=== PATIENT | male | born 1930 | race Caucasian/White ===

== ENCOUNTER 2016-12-04 04:20 | Inpatient (IN) | payer MEDICARE ==
[~2016-12-04] VITALS: Ht 182.9 cm; Wt 93.0 kg
[2016-12-04] MEDS ORDERED: TELM40TA PO (04:36)
[2016-12-04] MEDS ORDERED: METH500T7 PO (04:36)
[2016-12-04] MEDS ORDERED: GABA-827 PO (04:36)
[2016-12-04] MEDS ORDERED: DIAZ2TAB3 PO (04:36)
[2016-12-04] MEDS ORDERED: DOXY100C2 PO (04:36)
[2016-12-04] MEDS ORDERED: FINA5TAB4 PO (04:36)
[2016-12-04] MEDS ORDERED: OXYC-302 PO (04:36)
[2016-12-04] MEDS ORDERED: TAMS0.4C2 PO (04:36)
[2016-12-04] MEDS ORDERED: SODIUM CHLORIDE 0.9% 1,000 ML IV ONE (05:16)
[2016-12-04] MEDS ORDERED: SODIUM CHLORIDE FLUSH 10ML SYR IVF ONE (05:30)
[2016-12-04 06:13] LABS: ASPARTATE AMINO TRANSFERASE 9 U/L (15-37); BLOOD UREA NITROGEN 25 mg/dL (7-18); C-REACTIVE PROTEIN, QUANT 0.13 mg/dL (0.02-0.49)
[2016-12-04] MEDS ORDERED: GADOBUTROL 10 MMOL/10 ML PFS ONE (07:37)
[2016-12-04] MEDS ORDERED: ACYCLOVIR IV ONE (10:00)
[2016-12-04] MEDS ORDERED: SODIUM CHLORIDE 0.9% IV ONE (10:00)
[2016-12-04 10:21] LABS: RAPID INFLUENZA A Negative (Negative); RAPID INFLUENZA B Negative (Negative)
[2016-12-04 11:21] VITALS: BP 159/89
[2016-12-04] MEDS ORDERED: BISACODYL 10 MG SUPP PR PRN (11:30)
[2016-12-04] MEDS ORDERED: ONDANSETRON 2MG/ML, 2ML IVP PRN (11:30)
[2016-12-04] MEDS ORDERED: ENALAPRILAT 1.25 MG/ML, 2ML IVPush PRN (11:30)
[2016-12-04 14:09] LABS: GLUCOSE, CSF 82 mg/dL (40-80)
[2016-12-04 14:17] VITALS: BP 153/88
[2016-12-04] MEDS ORDERED: MEROPENEM 1 GM in SODIUM CHLORIDE 0.9% 100 ML IV SCH (14:30)
[2016-12-04] MEDS: NS + 20MEQ KCL 1,000 ML IV SCH (14:32)
[2016-12-04] MEDS: INSULIN REGULAR 100 UNITS/ML, 3ML VIAL SQ-INSULIN SCH ×2 (16:00→21:00)
[2016-12-04] MEDS: GABAPENTIN 400 MG CAPSULE PO SCH ×2 (17:44→21:58)
[2016-12-04] MEDS: MORPHINE SULFATE 4 MG/ML, 1ML IVPush PRN ×2 (18:00→22:58)
[2016-12-04] MEDS: SODIUM CHLORIDE 0.9% IV SCH (19:06)
[2016-12-04] MEDS: ACYCLOVIR IV SCH (19:06)
[2016-12-04 20:24] VITALS: BP 147/82
[2016-12-05 00:26] VITALS: BP 139/80
[2016-12-05] MEDS: SODIUM CHLORIDE 0.9% IV SCH ×3 (03:57→20:30)
[2016-12-05] MEDS: ACYCLOVIR IV SCH ×3 (03:57→20:30)
[2016-12-05] MEDS: NS + 20MEQ KCL 1,000 ML IV SCH ×2 (03:57→16:00)
[2016-12-05] MEDS: MORPHINE SULFATE 4 MG/ML, 1ML IVPush PRN ×2 (05:35→15:11)
[2016-12-05 06:17] LABS: BLOOD UREA NITROGEN 22 mg/dL (7-18)
[2016-12-05 06:33] VITALS: BP 136/72
[2016-12-05] MEDS: INSULIN REGULAR 100 UNITS/ML, 3ML VIAL SQ-INSULIN SCH ×4 (07:00→20:35)
[2016-12-05] MEDS: VALSARTAN 160 MG TABLET PO SCH (08:44)
[2016-12-05] MEDS: TAMSULOSIN 0.4 MG CAP.ER.24H PO SCH (08:44)
[2016-12-05] MEDS: FINASTERIDE 5 MG TABLET PO SCH (08:44)
[2016-12-05] MEDS: GABAPENTIN 400 MG CAPSULE PO SCH ×3 (08:44→20:34)
[2016-12-05 12:40] VITALS: BP 145/77
[2016-12-05] MEDS: ACETAMINOPHEN 325 MG TABLET PO PRN (15:11)
[2016-12-05 19:50] VITALS: BP 157/85
[2016-12-06] VITALS (7 sets, daily range): BP systolic 126–181; BP diastolic 74–97
[2016-12-06] MEDS: NS + 20MEQ KCL 1,000 ML IV SCH ×2 (02:16→13:43)
[2016-12-06] MEDS: ACYCLOVIR IV SCH ×3 (04:19→21:25)
[2016-12-06] MEDS: SODIUM CHLORIDE 0.9% IV SCH ×3 (04:19→21:25)
[2016-12-06 05:26] LABS: BLOOD UREA NITROGEN 20 mg/dL (7-18)
[2016-12-06] MEDS: ACETAMINOPHEN 325 MG TABLET PO PRN ×2 (05:42→13:44)
[2016-12-06] MEDS: INSULIN REGULAR 100 UNITS/ML, 3ML VIAL SQ-INSULIN SCH (07:00)
[2016-12-06] MEDS: TAMSULOSIN 0.4 MG CAP.ER.24H PO SCH (08:34)
[2016-12-06] MEDS: MORPHINE SULFATE 4 MG/ML, 1ML IVPush PRN (08:34)
[2016-12-06] MEDS: FINASTERIDE 5 MG TABLET PO SCH (08:34)
[2016-12-06] MEDS: VALSARTAN 160 MG TABLET PO SCH (08:34)
[2016-12-06] MEDS: GABAPENTIN 400 MG CAPSULE PO SCH ×3 (08:34→21:25)
[2016-12-06] MEDS: OXYcodone/APAP 5/325MG TABLET PO PRN ×2 (13:44→21:52)
[2016-12-06 22:06] LABS: ABSOLUTE CD 4 HELPER 365 /uL (359-1519); HEMATOCRIT 44.3 % (37.5-51.0); HEMOGLOBIN 15.1 g/dL (12.6-17.7); IMMATURE GRANULOCYTES 0 % (.); MCH 32.3 pg (26.6-33.0); MCHC 34.1 g/dL (31.5-35.7); MCV 95 fL (79-97); MONOCYTES 11 % (.); NEUTROPHILS 80 % (.); PLATELETS 175 x10E3/uL (150-379); RBC 4.68 x10E6/uL (4.14-5.80); RDW 13.8 % (12.3-15.4); WBC 10.8 x10E3/uL (3.4-10.8)
[2016-12-07] MEDS: NS + 20MEQ KCL 1,000 ML IV SCH ×2 (02:07→13:12)
[2016-12-07 02:12] VITALS: BP 137/74
[2016-12-07] MEDS: OXYcodone/APAP 5/325MG TABLET PO PRN ×4 (02:29→20:35)
[2016-12-07] MEDS: ACYCLOVIR IV SCH ×3 (05:04→21:11)
[2016-12-07] MEDS: SODIUM CHLORIDE 0.9% IV SCH ×3 (05:04→21:11)
[2016-12-07 08:53] VITALS: BP 145/81
[2016-12-07] MEDS: FINASTERIDE 5 MG TABLET PO SCH (09:41)
[2016-12-07] MEDS: VALSARTAN 160 MG TABLET PO SCH (09:41)
[2016-12-07] MEDS: TAMSULOSIN 0.4 MG CAP.ER.24H PO SCH (09:41)
[2016-12-07] MEDS: GABAPENTIN 400 MG CAPSULE PO SCH ×3 (09:41→21:11)
[2016-12-07 14:41] VITALS: BP 138/74
[2016-12-07 20:17] VITALS: BP 170/83
[2016-12-07 21:10] VITALS: BP 173/92
[2016-12-07] MEDS ORDERED: ENALAPRILAT 1.25 MG/ML, 2ML IV ONE (21:30)
[2016-12-08] MEDS: NS + 20MEQ KCL 1,000 ML IV SCH ×2 (01:23→16:51)
[2016-12-08 01:25] VITALS: BP 160/90
[2016-12-08] MEDS: OXYcodone/APAP 5/325MG TABLET PO PRN ×4 (01:37→18:32)
[2016-12-08] MEDS: ACYCLOVIR IV SCH ×3 (04:44→21:48)
[2016-12-08] MEDS: SODIUM CHLORIDE 0.9% IV SCH ×3 (04:44→21:48)
[2016-12-08 04:49] VITALS: BP 162/87
[2016-12-08 08:24] VITALS: BP 161/90
[2016-12-08] MEDS: VALSARTAN 160 MG TABLET PO SCH (08:29)
[2016-12-08] MEDS: TAMSULOSIN 0.4 MG CAP.ER.24H PO SCH (08:30)
[2016-12-08] MEDS: FINASTERIDE 5 MG TABLET PO SCH (08:30)
[2016-12-08] MEDS: GABAPENTIN 400 MG CAPSULE PO SCH ×3 (08:30→21:00)
[2016-12-08 11:36] LABS: ASPARTATE AMINO TRANSFERASE 7 U/L (15-37); BLOOD UREA NITROGEN 11 mg/dL (7-18)
[2016-12-08 14:58] VITALS: BP 110/70
[2016-12-08 19:21] VITALS: BP 150/74
[2016-12-08] MEDS: LISINOPRIL 5 MG TABLET PO SCH (21:00)
[2016-12-09] MEDS: OXYcodone/APAP 5/325MG TABLET PO PRN ×2 (00:34→09:12)
[2016-12-09 01:45] VITALS: BP 151/77
[2016-12-09] MEDS: ACYCLOVIR IV SCH ×3 (04:49→20:16)
[2016-12-09] MEDS: SODIUM CHLORIDE 0.9% IV SCH ×3 (04:49→20:16)
[2016-12-09 05:42] LABS: HIV 1&2 ANTIBODY SCREEN Nonreactive (Nonreactive); HIV-1 p24 ANTIGEN Nonreactive (Nonreactive)
[2016-12-09] MEDS: LISINOPRIL 5 MG TABLET PO SCH ×2 (09:00→22:14)
[2016-12-09] MEDS ORDERED: LIDOCAINE 1%, 20ML ONE (09:08)
[2016-12-09] MEDS ORDERED: LIDOCAINE 2%, 20ML ONE ×2 (09:09→14:25)
[2016-12-09 09:10] VITALS: BP 137/82
[2016-12-09] MEDS: GABAPENTIN 400 MG CAPSULE PO SCH ×3 (09:12→22:14)
[2016-12-09] MEDS: TAMSULOSIN 0.4 MG CAP.ER.24H PO SCH (09:12)
[2016-12-09] MEDS: VALSARTAN 160 MG TABLET PO SCH (09:12)
[2016-12-09] MEDS: FINASTERIDE 5 MG TABLET PO SCH (09:12)
[2016-12-09] MEDS ORDERED: FENTANYL PF 100 MCG/2ML ONE ×2 (09:13→14:15)
[2016-12-09] MEDS ORDERED: NALOXONE 1 MG/ML, 2ML ONE ×2 (09:13→14:15)
[2016-12-09 10:54] LABS: ASPARTATE AMINO TRANSFERASE 9 U/L (15-37); BLOOD UREA NITROGEN 11 mg/dL (7-18)
[2016-12-09] MEDS: NS + 20MEQ KCL 1,000 ML IV SCH (12:19)
[2016-12-09] MEDS: MORPHINE SULFATE 4 MG/ML, 1ML IVPush PRN (12:32)
[2016-12-09 12:55] VITALS: BP 138/82
[2016-12-09] MEDS ORDERED: MIDAZOLAM 1 MG/ML, 5ML ONE (14:15)
[2016-12-09] MEDS ORDERED: FLUMAZENIL 0.1 MG/1 ML, 5ML ONE (14:15)
[2016-12-09] MEDS ORDERED: OMNIPAQUE 350 MG/ML, 75ML BOTTLE ONE (14:51)
[2016-12-09 16:02] VITALS: BP 174/91
[2016-12-09 19:30] VITALS: BP 163/79
[2016-12-10 03:30] VITALS: BP 155/99
[2016-12-10] MEDS: NS + 20MEQ KCL 1,000 ML IV SCH (04:28)
[2016-12-10] MEDS: ACYCLOVIR IV SCH ×3 (04:30→21:18)
[2016-12-10] MEDS: SODIUM CHLORIDE 0.9% IV SCH ×3 (04:30→21:18)
[2016-12-10 05:44] LABS: BLOOD UREA NITROGEN 9 mg/dL (7-18)
[2016-12-10 07:35] VITALS: BP 158/88
[2016-12-10] MEDS: MORPHINE SULFATE 4 MG/ML, 1ML IVPush PRN ×2 (08:14→09:45)
[2016-12-10] MEDS: TAMSULOSIN 0.4 MG CAP.ER.24H PO SCH (08:15)
[2016-12-10] MEDS: FINASTERIDE 5 MG TABLET PO SCH (08:15)
[2016-12-10] MEDS: GABAPENTIN 400 MG CAPSULE PO SCH ×3 (08:15→21:04)
[2016-12-10] MEDS: VALSARTAN 160 MG TABLET PO SCH (08:16)
[2016-12-10] MEDS: LISINOPRIL 5 MG TABLET PO SCH ×2 (08:17→21:00)
[2016-12-10] MEDS: ACETAMINOPHEN 325 MG TABLET PO PRN (10:43)
[2016-12-10 15:33] VITALS: BP 136/83
[2016-12-10] MEDS: OXYcodone/APAP 5/325MG TABLET PO PRN ×2 (15:43→21:04)
[2016-12-10 18:59] VITALS: BP 147/83
[2016-12-11 00:52] VITALS: BP 157/85
[2016-12-11] MEDS: OXYcodone/APAP 5/325MG TABLET PO PRN ×4 (01:35→18:19)
[2016-12-11] MEDS: SODIUM CHLORIDE 0.9% IV SCH ×3 (04:42→20:52)
[2016-12-11] MEDS: ACYCLOVIR IV SCH ×3 (04:42→20:52)
[2016-12-11 06:09] LABS: ASPARTATE AMINO TRANSFERASE 16 U/L (15-37); BLOOD UREA NITROGEN 13 mg/dL (7-18)
[2016-12-11] MEDS: NS + 20MEQ KCL 1,000 ML IV SCH (06:34)
[2016-12-11 08:14] VITALS: BP 173/89
[2016-12-11] MEDS: GABAPENTIN 400 MG CAPSULE PO SCH ×3 (09:00→18:19)
[2016-12-11] MEDS: FINASTERIDE 5 MG TABLET PO SCH (09:00)
[2016-12-11] MEDS: LISINOPRIL 5 MG TABLET PO SCH (09:00)
[2016-12-11] MEDS: TAMSULOSIN 0.4 MG CAP.ER.24H PO SCH (09:00)
[2016-12-11] MEDS: VALSARTAN 160 MG TABLET PO SCH (09:00)
[2016-12-11] MEDS: MORPHINE SULFATE 4 MG/ML, 1ML IVPush PRN (09:00)
[2016-12-11 12:54] VITALS: BP 158/89
[2016-12-11 19:27] VITALS: BP 102/66
[2016-12-11] MEDS: LISINOPRIL 10 MG TABLET PO SCH (20:46)
[2016-12-12] MEDS: OXYcodone/APAP 5/325MG TABLET PO PRN ×4 (00:38→16:23)
[2016-12-12 02:34] VITALS: BP 157/82
[2016-12-12] MEDS: ACYCLOVIR IV SCH ×3 (04:44→20:50)
[2016-12-12] MEDS: SODIUM CHLORIDE 0.9% IV SCH ×3 (04:44→20:50)
[2016-12-12 06:15] LABS: BLOOD UREA NITROGEN 13 mg/dL (7-18)
[2016-12-12 06:44] VITALS: BP 155/87
[2016-12-12] MEDS: VALSARTAN 160 MG TABLET PO SCH (09:07)
[2016-12-12] MEDS: TAMSULOSIN 0.4 MG CAP.ER.24H PO SCH (09:08)
[2016-12-12] MEDS: GABAPENTIN 400 MG CAPSULE PO SCH ×3 (09:09→20:51)
[2016-12-12] MEDS: LISINOPRIL 10 MG TABLET PO SCH ×2 (09:10→20:51)
[2016-12-12] MEDS: FINASTERIDE 5 MG TABLET PO SCH (09:10)
[2016-12-12] MEDS: SODIUM CHLORIDE 0.9% 1,000 ML IV SCH (11:38)
[2016-12-12 12:03] VITALS: BP 138/80
[2016-12-12 19:59] VITALS: BP 166/89
[2016-12-13 01:41] VITALS: BP 148/91
[2016-12-13] MEDS: SODIUM CHLORIDE 0.9% IV SCH ×3 (04:39→20:03)
[2016-12-13] MEDS: ACYCLOVIR IV SCH ×3 (04:39→20:03)
[2016-12-13 07:58] VITALS: BP 139/92
[2016-12-13] MEDS: SODIUM CHLORIDE 0.9% 1,000 ML IV SCH ×2 (08:56→20:04)
[2016-12-13] MEDS: TAMSULOSIN 0.4 MG CAP.ER.24H PO SCH (08:58)
[2016-12-13] MEDS: OXYcodone/APAP 5/325MG TABLET PO PRN ×2 (08:58→14:47)
[2016-12-13] MEDS: VALSARTAN 160 MG TABLET PO SCH (08:58)
[2016-12-13] MEDS: FINASTERIDE 5 MG TABLET PO SCH (08:58)
[2016-12-13] MEDS: LISINOPRIL 10 MG TABLET PO SCH (08:58)
[2016-12-13] MEDS: GABAPENTIN 400 MG CAPSULE PO SCH ×3 (08:58→20:03)
[2016-12-13 09:15] VITALS: BP 162/101
[2016-12-13 10:46] LABS: IS PT STATUS REG ER OR PRE ER? NO
[2016-12-13 13:00] VITALS: BP 114/77
[2016-12-13] MEDS: LISINOPRIL 20 MG TABLET PO SCH (20:04)
[2016-12-13 20:18] VITALS: BP_SYST 186; BP_SYST 189; BP_DIAS 102; BP_DIAS 89
[2016-12-14 02:49] VITALS: BP 157/93
[2016-12-14] MEDS: ACYCLOVIR IV SCH ×2 (04:13→12:36)
[2016-12-14] MEDS: SODIUM CHLORIDE 0.9% IV SCH ×2 (04:13→12:36)
[2016-12-14 05:15] LABS: BLOOD UREA NITROGEN 13 mg/dL (7-18)
[2016-12-14 07:51] VITALS: BP 167/87
[2016-12-14] MEDS: OXYcodone/APAP 5/325MG TABLET PO PRN ×3 (08:28→15:11)
[2016-12-14] MEDS: GABAPENTIN 400 MG CAPSULE PO SCH (08:29)
[2016-12-14] MEDS: FINASTERIDE 5 MG TABLET PO SCH (08:29)
[2016-12-14] MEDS: LISINOPRIL 20 MG TABLET PO SCH (08:29)
[2016-12-14] MEDS: TAMSULOSIN 0.4 MG CAP.ER.24H PO SCH (08:29)
[2016-12-14] MEDS: SODIUM CHLORIDE 0.9% 1,000 ML IV SCH (08:39)
[2016-12-14] MEDS ORDERED: LISI-170 PO (11:39)
[2016-12-14] MEDS ORDERED: OXYC1TAB7 PO (11:39)
[2016-12-14] MEDS ORDERED: ACYC200P IVPB (11:39)
== END 2016-12-14 15:29 | DRG 73 ==
LOC: ED 06:05 → EDIP 10:04 → 3NE 11:16
PROVIDERS: ADMIT Hospitalist; ATTEND Hospitalist
PROC: 009U3ZX Drainage of Spinal Canal, Percutaneous Approach, Diagnostic (ICD-10-PCS; 2016-12-04)
PROC: B01BZZZ Fluoroscopy of Spinal Cord (ICD-10-PCS; 2016-12-04)
PROC: 0T9B70Z Drainage of Bladder with Drainage Device, Via Natural or Artificial Opening (ICD-10-PCS; 2016-12-04)
PROC: 07DR3ZX Extraction of Iliac Bone Marrow, Percutaneous Approach, Diagnostic (ICD-10-PCS; principal; 2016-12-08)
DX: B02.0 Zoster encephalitis (principal); N17.0 Acute kidney failure with tubular necrosis; E44.0 Moderate protein-calorie malnutrition; E87.1 Hypo-osmolality and hyponatremia; N13.8 Other obstructive and reflux uropathy; J98.11 Atelectasis; N40.1 Benign prostatic hyperplasia with lower urinary tract symptoms; E86.0 Dehydration; B02.7 Disseminated zoster; E86.1 Hypovolemia; G89.29 Other chronic pain; I11.9 Hypertensive heart disease without heart failure; I25.10 Atherosclerotic heart disease of native coronary artery without angina pectoris; K44.9 Diaphragmatic hernia without obstruction or gangrene; M25.78 Osteophyte, vertebrae; K57.90 Diverticulosis of intestine, part unspecified, without perforation or abscess without bleeding; M19.90 Unspecified osteoarthritis, unspecified site; M48.06 Spinal stenosis, lumbar region; M48.07 Spinal stenosis, lumbosacral region; M51.36 Other intervertebral disc degeneration, lumbar region; R32 Unspecified urinary incontinence; Z66 Do not resuscitate; Z86.19 Personal history of other infectious and parasitic diseases; Z87.891 Personal history of nicotine dependence; Z90.49 Acquired absence of other specified parts of digestive tract; Z91.14 Patient's other noncompliance with medication regimen; Z68.27 Body mass index [BMI] 27.0-27.9, adult
CPT/HCPCS: 36415; 51702; 62270; 70450; 70553; 71010; 71260; 72158; 74176; 77012; 80048; 80053; 81003; 82140; 82945; 82962; 83036; 83605; 83690; 84145; 84157; 84295; 84443; 84484; 85025; 85097; 85610; 85651; 86140; 86361; 86480; 86703; 86787; 87040; 87070; 87086; 87205; 87252; 87255; 87400; 87529; 87798; 87899; 88108; 88184; 88185; 88237; 88264; 88280; 88305; 88311; 88313; 89051; 93005; 96361; 96365; 99156; 99157; A9585; G0364; J0133; J2250; J3010; J3480; J3490; Q9967; G0435; J2310; J7030; J7050

== ENCOUNTER 2017-01-10 22:49 | Emergency (ER) | payer MEDICARE ==
[~2017-01-10] VITALS: Ht 182.9 cm; Wt 80.0 kg
[~2017-01-10 22:49] MED LIST: ACYC200P IVPB; DIAZ2TAB3 PO; DOXY100C2 PO; FINA5TAB4 PO; GABA-827 PO; LISI-170 PO; METH500T7 PO; OXYC-302 PO; OXYC1TAB7 PO; TAMS0.4C2 PO; TELM40TA PO
[2017-01-10 22:51] VITALS: BP 130/77
[2017-01-10] MEDS ORDERED: OXYcodone/APAP 5/325MG TABLET PO ONE (23:30)
[2017-01-10] MEDS ORDERED: OXYcodone/APAP 5/325MG TABLET ONE (23:38)
== END 2017-01-11 00:44 | disposition short-term general hospital (02) ==
LOC: ED 23:53
DX: R45.1 Restlessness and agitation (principal); I10 Essential (primary) hypertension
CPT/HCPCS: 99285

== ENCOUNTER 2017-02-02 19:40 | Inpatient (IN) | payer MEDICARE ==
[~2017-02-02] VITALS: Ht 182.9 cm; Wt 79.1 kg
[2017-02-02] MEDS ORDERED: SODIUM CHLORIDE 0.9% 1,000ML IVBOLUS ONE (20:00)
[2017-02-02] MEDS ORDERED: SODIUM CHLORIDE FLUSH 10ML SYR IVF ONE (20:00)
[2017-02-02] MEDS ORDERED: PLEASE ENTER HEIGHT AND WEIGHT MC SCH (20:00)
[2017-02-02 20:23] LABS: ASPARTATE AMINO TRANSFERASE 21 U/L (15-37); BLOOD UREA NITROGEN 30 mg/dL (7-18)
[2017-02-02 20:36] LABS: DIFF TOTAL CELLS COUNTED 100 CELL DIFF
[2017-02-02 20:43] LABS: ANISOCYTOSIS 1+
[2017-02-02 20:44] LABS: VERIFY COUNTS? YES
[2017-02-02] MEDS ORDERED: CEFTRIAXONE PMX 1GM/50ML 50 ML ONE (22:06)
[2017-02-02] MEDS ORDERED: CEFTRIAXONE PMX 1GM/50ML 50 ML IV ONE (22:30)
[2017-02-02 23:39] VITALS: BP 111/67
[2017-02-02] MEDS ORDERED: NS + 20MEQ KCL 1,000 ML IV SCH (23:40)
[2017-02-02] MEDS ORDERED: PHARMACOKINETIC CONSULTATION MC ONE (23:45)
[2017-02-02] MEDS ORDERED: PHARMACOKINETIC MONITORING MC PRN (23:45)
[2017-02-03] MEDS ORDERED: POLYETHYLENE GLYCOL 17 GM PACKET PO PRN
[2017-02-03] MEDS ORDERED: morphine SULFATE 10 MG/ML, 1ML IVPush PRN
[2017-02-03] MEDS ORDERED: OXYcodone/APAP 5/325MG TABLET PO PRN
[2017-02-03] MEDS ORDERED: VANCOMYCIN PER PHARMACY MC PRN
[2017-02-03] MEDS ORDERED: ONDANSETRON 2MG/ML, 2ML IVPush PRN
[2017-02-03] MEDS ORDERED: DOCUSATE 100 MG CAPSULE PO PRN
[2017-02-03] MEDS ORDERED: CEFTRIAXONE PMX 1GM/50ML 50 ML IV SCH
[2017-02-03] MEDS: VANCOMYCIN 1,700 MG in SODIUM CHLORIDE 0.9% 250 ML IV SCH (00:30)
[2017-02-03] MEDS: ENOXAPARIN 40 MG/0.4 ML SQ SCH (00:30)
[2017-02-03] MEDS: ACETAMINOPHEN 325 MG TABLET PO PRN ×3 (00:30→15:49)
[2017-02-03 01:20] VITALS: BP 115/67
[2017-02-03 05:46] LABS: BLOOD UREA NITROGEN 27 mg/dL (7-18)
[2017-02-03 06:34] LABS: DIFF TOTAL CELLS COUNTED 100 CELL DIFF
[2017-02-03 06:35] LABS: VERIFY COUNTS? YES
[2017-02-03 06:36] LABS: ANISOCYTOSIS 1+; HYPOCHROMIA 1+
[2017-02-03 07:31] VITALS: BP 98/57
[2017-02-03] MEDS ORDERED: POTASSIUM CHLORIDE 20 MEQ TAB.ER.PRT PO SCH (08:00)
[2017-02-03] MEDS ORDERED: MAGNESIUM SULFATE PMX 2GM/50ML 50 ML IV ONE (08:30)
[2017-02-03] MEDS: SENNA/DOCUSATE TABLET PO SCH (09:00)
[2017-02-03] MEDS: GABAPENTIN 400 MG CAPSULE PO SCH ×3 (09:00→22:29)
[2017-02-03] MEDS ORDERED: POTASSIUM CHLORIDE 40 MEQ in SODIUM CHLORIDE 0.9% 500 ML IV ONE (09:30)
[2017-02-03] MEDS: TAMSULOSIN 0.4 MG CAP.ER.24H PO SCH (09:31)
[2017-02-03] MEDS: FINASTERIDE 5 MG TABLET PO SCH (09:31)
[2017-02-03 12:12] VITALS: BP 102/52
[2017-02-03 18:56] VITALS: BP 104/64
[2017-02-03 19:42] VITALS: BP 167/113
[2017-02-04] VITALS (10 sets, daily range): BP systolic 77–93; BP diastolic 43–56
[2017-02-04] MEDS: ENOXAPARIN 40 MG/0.4 ML SQ SCH (00:21)
[2017-02-04] MEDS: VANCOMYCIN 1,700 MG in SODIUM CHLORIDE 0.9% 250 ML IV SCH (00:21)
[2017-02-04] MEDS: SODIUM CHLORIDE 0.9% 500 ML IV SCH ×2 (03:15→04:30)
[2017-02-04] MEDS ORDERED: NS + 20MEQ KCL 1,000 ML IV SCH (05:30)
[2017-02-04] MEDS ORDERED: FUROSEMIDE 40 MG/4 ML IV ONE (05:30)
[2017-02-04] MEDS ORDERED: ERTAPENEM 1 GM in SODIUM CHLORIDE 0.9% 50 ML IV SCH (07:00)
[2017-02-04] MEDS ORDERED: LEVOFLOXACIN/PMX 750MG/150ML 150 ML IV SCH ×2 (07:00→07:30)
[2017-02-04 07:01] LABS: DIFF TOTAL CELLS COUNTED 100 CELL DIFF
[2017-02-04 07:04] LABS: ANISOCYTOSIS 1+; VERIFY COUNTS? YES
[2017-02-04] MEDS ORDERED: MAGNESIUM SULFATE PMX 2GM/50ML 50 ML IV ONE (07:30)
[2017-02-04 07:36] LABS: BLOOD UREA NITROGEN 27 mg/dL (7-18)
[2017-02-04] MEDS ORDERED: MEROPENEM 1 GM in SODIUM CHLORIDE 0.9% 100 ML IV SCH (09:00)
[2017-02-04] MEDS ORDERED: SODIUM CHLORIDE 0.9%, 500ML IVBOLUS ONE ×2 (09:00→12:00)
[2017-02-04] MEDS ORDERED: ALBUMIN HUMAN 25% 100 ML IV ONE (09:00)
[2017-02-04] MEDS: TAMSULOSIN 0.4 MG CAP.ER.24H PO SCH (09:17)
[2017-02-04] MEDS: SENNA/DOCUSATE TABLET PO SCH (09:17)
[2017-02-04] MEDS: FINASTERIDE 5 MG TABLET PO SCH (09:17)
[2017-02-04] MEDS: GABAPENTIN 400 MG CAPSULE PO SCH (09:17)
[2017-02-04] MEDS ORDERED: ACYCLOVIR 800 MG in SODIUM CHLORIDE 0.9% 250 ML IV SCH (09:30)
[2017-02-04] MEDS ORDERED: FUROSEMIDE 20 MG/2 ML IV ONE (10:00)
== END 2017-02-04 16:37 | disposition expired | DRG 871 ==
LOC: ED 20:25 → EDIP 22:31 → 3NE 22:53
PROVIDERS: ADMIT Family Medicine; ATTEND Family Medicine
DX: A41.9 Sepsis, unspecified organism (principal); E43 Unspecified severe protein-calorie malnutrition; J18.9 Pneumonia, unspecified organism; G93.49 Other encephalopathy; B00.4 Herpesviral encephalitis; E87.1 Hypo-osmolality and hyponatremia; N39.0 Urinary tract infection, site not specified; R17 Unspecified jaundice; E83.51 Hypocalcemia; E87.6 Hypokalemia; I10 Essential (primary) hypertension; I48.91 Unspecified atrial fibrillation; N40.0 Benign prostatic hyperplasia without lower urinary tract symptoms; L89.159 Pressure ulcer of sacral region, unspecified stage; R29.6 Repeated falls; Z51.5 Encounter for palliative care; Z66 Do not resuscitate; I95.9 Hypotension, unspecified; Z68.23 Body mass index [BMI] 23.0-23.9, adult; Z88.0 Allergy status to penicillin; Z88.6 Allergy status to analgesic agent; Z91.040 Latex allergy status; Z72.89 Other problems related to lifestyle; Z79.899 Other long term (current) drug therapy
CPT/HCPCS: 36415; 71010; 80048; 80053; 81001; 83605; 83735; 84145; 85025; 87040; 87070; 87077; 87086; 87186; 87205; 93005; 96361; 96365; J0133; J0696; J1335; J1650; J1940; J2185; J3370; J3480; P9047; J3475; J7030; J7040; J7050